=== PATIENT | male | born 1990 | race Caucasian/White ===

== ENCOUNTER 2020-07-26 23:32 | Emergency (ER) | payer MEDICAID ==
[~2020-07-26] VITALS: Ht 188 cm; Wt 80.7 kg
[2020-07-26 23:59] VITALS: BP 164/96
--- NOTE | 2020-07-27 00:04 | NUR ---
ED Nurse Note: pt has c/o of increased blood pressure started last night after drinking, no other medical hx, aox4, ambulatory hypertensive on triage no other complaints, patient placed in bed 3
[2020-07-27] MEDS ORDERED: AMLODIPINE BESYL5 MG ORAL (00:15)
--- NOTE | 2020-07-27 00:16 | Emergency Room Report ---
History of Present Illness General Chief Complaint: General Complaint Source: Patient Present Illness HPI 22-year-old male no prior medical history presents to emergency department with complaint of high blood pressure reading. Patient states that his blood pressure at home felt high so he wanted to get checked out for further evaluation. Patient states that he drinks several shots of vodka last night and usually feels like this after binge drinking. He denies any subjective physical complaints. Denies headache, vision changes, neck pain, back pain, chest pain, shortness of breath, dizziness, slurred speech, nausea, vomiting, diarrhea or any other symptoms. The patient's symptoms were gradual onset, severity was moderate, duration since 1 day. Quality: No complaints Past medical history: Denies Past surgical history: Denies Smoking: Denies Alcohol use: Positive Drug use: Denies Review of systems: CONST: No fevers or chills, No night sweats PULMONARY: No productive cough, No shortness of breath CARDIAC: No chest pain, No palpitations GI: No vomiting, No diarrhea , No melena_or_BRBPR : No dysuria, No hematuria, No discharge NEURO: No new_focal_weakness_or_numbness, No confusion, No vision changes 14 point Review of Systems is otherwise negative except per HPI Physical Exam: GENERAL: Awake_alert_ nontoxic, no acute distress Spo2 100% on RA -normal EYES: Extraocular muscles are intact. Conjunctivae clear. Lids without swelling. No nystagmus ENT: External nose and ear normal_in_appearance. Oropharynx clear. Head_atraumatic, Moist_oral_mucosa NECK: No JVD. No meningismus. No thyromegaly. Supple. Trachea midline. No nuchal rigidity RESP: Normal respiratory effort. Symmetric rise. No stridor. Clear_to_auscultation_No_rales_No_wheezes CARDIAC: Regular rate and regular rhytm. No_significant pedal edema. No murmur. ABDOMEN: Soft. Nondistended. Nontender_No_rebound_or_guarding. No pulsatile mass MSK: Normal muscle tone, without rigidity. Extremities without asymmetric deformity or swelling. SKIN: Warm and dry. No visible cyanosis or pallor NEUROLOGIC: Alert, oriented x3. Motor_and_sensation_grossly_intact. No truncal ataxia. Gait_normal. Psych: Normal mood and affect, normal judgment and insight - COORDINATION OF CARE Case was discussed with: Patient Medical Decision Making/Plan: Differential diagnosis includes essential hypertension, malignant hypertension, hypertensive emergency, end-organ damage (such as renal failure, cardiac ischemia, pulmonary edema, hypertensive encephalopathy, intracranial hemorrhage, among others), medication noncompliance, among others. Patient is alert and oriented, no neuro deficits, no severe headache, no evidence of hypertensive encephalopathy or intracranial bleeding. No volume overload, chest pain, or shortness of breath, no evidence of cardiac ischemia or CHF. On history and exam , the patient exhibits no features of end-organ dam age. They have no no chest pain, shortness of breath, or evidence of volume overload. No evidence of alcohol withdrawal. Suspect transient hypotension secondary to decreased p.o. intake from drinking so much alcohol. He is clinically sober at this time. He states that he has poor access to primary care doctor therefore I will give him information necessary to set up an outpatient appointment for follow-up. The patient was given a new prescription for amlodipine and appears to be stable for discharge home, and blood pressure recheck with their PMD in 1-2 days as instructed. Allergies: Coded Allergies: No Known Allergies (Unverified , 07/27/20) COVID-19 Screening Contact w/high risk pt: No Experienced COVID-19 symptoms?: No COVID-19 Testing performed CRIMINAL LAWYER: No Nursing Documentation-PMH Hx Cardiac Problems: No Hx Hypertension: No Hx Pacemaker: No Hx Asthma: No Hx COPD: No Hx Diabetes: No Hx Cancer: No Hx Gastrointestinal Problems: No Hx Dialysis: No History Of Psychiatric Problem: No Hx Neurological Problems: No Hx Cerebrovascular Accident: No Hx Seizures: No Physical Exam Vital Signs Date Time Temp Pulse Resp B/P (MAP) Pulse Ox O2 Delivery O2 Flow Rate FiO2 07/26/20 23:43 98.4 85 20 168/103 (124) 100 Room Air Sp02 EP Interpretation: reviewed, normal Medical Decision Making Diagnostic Impression: Primary Impression: Hypertension Last Vital Signs Date Time Temp Pulse Resp B/P (MAP) Pulse Ox O2 Delivery O2 Flow Rate FiO2 07/26/20 23:59 85 20 Room Air 07/26/20 23:59 98.4 164/96 100 Disposition: HOME, SELF-CARE Admit Decision Time: 00:15 Condition: Stable Scripts Amlodipine Besylate* (AMLODIPINE BESYLATE*) 5 Mg Tablet 5 MG ORAL DAILY for Hypertension for 14 Days, #14 TAB Prov: Criss Young D.O. 07/27/20 Referrals: NOT CHOSEN [facility]/,REFERRING (PCP) Additional Instructions: Instructions for patient/operations officer trust department: Follow up with your physician in 1-2 days. Please modify your diet to incorporate more vegetables and healthy foods. Avoid drinking alcohol. Do not drink and drive. Please attempt to get at least 3 days every week of exercise. Follow-up with your doctor sooner if your condition requires a more timely clinical reevaluation. Return to the emergency department immediately if you feel that your condition is worsening or if you have any new or concerning symptoms. Review your discharge instructions and take any prescriptions given as instructed. [facility] PROVIDES FREE OR LOW-COST HEALTH SERVICES TO PEOPLE WHO CAN SHOW PROOF THAT THEY LIVE IN [facility]. TO FIND MORE CLINICS PARTNERED WITH [facility] TO PROVIDE SERVICE, PLEASE CALL . Criss Young D.O. Jul 27, 2020 00:16
[2020-07-27 00:20] VITALS: BP 156/96
--- NOTE | 2020-07-27 00:20 | NUR ---
ER DISCHARGE NOTE: Patient is cleared to be discharged per ERMD, pt is aox4, on room air, with stable vital signs. pt was given dc and prescription instructions, pt was able to verbalize understanding, pt id band removed without complications. pt is able to ambulate with steady gait. pt took all belongings.
== END 2020-07-27 00:20 | disposition home or self-care (01) ==
LOC: EMR 23:59
DX: I10 Essential (primary) hypertension (principal)
CPT/HCPCS: 99282